=== PATIENT | female | born 1960 | race Caucasian/White ===

== ENCOUNTER 2019-05-04 17:40 | Emergency (ER) | payer MEDICAID ==
[~2019-05-04] VITALS: Ht 170.2 cm; Wt 113.0 kg
[~2019-05-04 17:40] MED LIST: ALB0.5UD IH; CEPH-571 PO; COL100C PO; ESOM20CA PO; HYDR-4383 PO; LEVA15HF4 IH; MORP60TA77 PO; PANT-47 PO; QUET-1 PO; VAL5T PO
[2019-05-04] MEDS ORDERED: ZOLP10TA5 (18:28)
[2019-05-04] MEDS ORDERED: MORP30TA6 PO (18:28)
[2019-05-04] MEDS ORDERED: TIOT4MIS3 (18:28)
--- NOTE | 2019-05-04 19:52 | NUR ---
Dr. Dubon is with the patient at this time.
[2019-05-04 20:17] VITALS: BP 106/68
== END 2019-05-04 20:29 | disposition home or self-care (01) ==
LOC: ER 17:41
DX: S93.402A Sprain of unspecified ligament of left ankle, initial encounter (principal); M79.672 Pain in left foot; J44.9 Chronic obstructive pulmonary disease, unspecified; G89.29 Other chronic pain; F32.9 Major depressive disorder, single episode, unspecified; E05.90 Thyrotoxicosis, unspecified without thyrotoxic crisis or storm; Z88.0 Allergy status to penicillin; Z88.6 Allergy status to analgesic agent; Z79.899 Other long term (current) drug therapy; Z90.49 Acquired absence of other specified parts of digestive tract; Z90.710 Acquired absence of both cervix and uterus; X58.XXXA Exposure to other specified factors, initial encounter; Y93.89 Activity, other specified; Y92.89 Other specified places as the place of occurrence of the external cause; Y99.8 Other external cause status
CPT/HCPCS: 73630; 99283

== ENCOUNTER 2021-03-09 15:17 | Emergency (ER) | payer MEDICAID ==
[~2021-03-09] VITALS: Ht 170.2 cm; Wt 104.5 kg
[~2021-03-09 15:17] MED LIST changes: -CEPH-571 PO; +MORP30TA6 PO; -MORP60TA77 PO; -PANT-47 PO; +TIOT4MIS3; -VAL5T PO; +ZOLP10TA5
[2021-03-09 15:25] VITALS: BP 138/78
[2021-03-09] MEDS ORDERED: DIAZ5TAB22 PO (17:26)
== END 2021-03-09 17:34 | disposition home or self-care (01) ==
LOC: ER 15:22
DX: S16.1XXA Strain of muscle, fascia and tendon at neck level, initial encounter (principal); S39.012A Strain of muscle, fascia and tendon of lower back, initial encounter; M54.89 Other dorsalgia; R53.1 Weakness; R20.0 Anesthesia of skin; E05.90 Thyrotoxicosis, unspecified without thyrotoxic crisis or storm; J44.9 Chronic obstructive pulmonary disease, unspecified; G89.29 Other chronic pain; F32.9 Major depressive disorder, single episode, unspecified; Z90.49 Acquired absence of other specified parts of digestive tract; Z90.710 Acquired absence of both cervix and uterus; Z88.0 Allergy status to penicillin; Z88.5 Allergy status to narcotic agent; Z79.899 Other long term (current) drug therapy; W18.31XA Fall on same level due to stepping on an object, initial encounter; Y93.01 Activity, walking, marching and hiking; Y92.89 Other specified places as the place of occurrence of the external cause; Y99.8 Other external cause status
CPT/HCPCS: 99283